=== PATIENT | male | born 1985 | race African-American/Black ===

== ENCOUNTER 2017-09-04 15:32 | Emergency (ER) | payer SELFPAY ==
[~2017-09-04] VITALS: Ht 180.3 cm; Wt 104.5 kg
[2017-09-04 18:11] VITALS: BP 152/62
[2017-09-04] MEDS ORDERED: IBUPROFEN 800 MG TABLET PO ONE (18:45)
== END 2017-09-04 19:28 | disposition home or self-care (01) ==
LOC: EMS 15:33
DX: S39.012A Strain of muscle, fascia and tendon of lower back, initial encounter (principal); V49.40XA Driver injured in collision with unspecified motor vehicles in traffic accident, initial encounter; Y93.89 Activity, other specified; Y92.89 Other specified places as the place of occurrence of the external cause; Y99.8 Other external cause status
CPT/HCPCS: 99283